=== PATIENT | male | born 1960 | race Caucasian/White ===

== ENCOUNTER 2016-08-25 16:53 | Emergency (ER) | payer MEDICARE, BC ==
[~2016-08-25 16:53] MED LIST: BLOOD PRESSURE MED; COZAAR; LORTAB 101 TAB 10/5
== END 2016-08-25 18:28 | disposition home or self-care (01) ==
LOC: CED 16:53 → CFTX 16:53
DX: S51.811A Laceration without foreign body of right forearm, initial encounter (principal); M54.9 Dorsalgia, unspecified; I10 Essential (primary) hypertension; G62.9 Polyneuropathy, unspecified; F17.210 Nicotine dependence, cigarettes, uncomplicated; W26.8XXA Contact with other sharp object(s), not elsewhere classified, initial encounter; Y92.009 Unspecified place in unspecified non-institutional (private) residence as the place of occurrence of the external cause
CPT/HCPCS: 12004; 90471; 90715; 99283